=== PATIENT | female | born 1990 | race Caucasian/White ===

== ENCOUNTER 2017-01-02 01:34 | Emergency (ER) | payer OTHER ==
[2017-01-02 01:38] VITALS: BP 130/75; PULSE 88; RESP 16; TEMP 97.5; O2SAT 100
== END 2017-01-02 02:03 | disposition home or self-care (01) | DRG 951 ==
LOC: ED 01:34
DX: Z77.21 Contact with and (suspected) exposure to potentially hazardous body fluids (principal); W46.0XXA Contact with hypodermic needle, initial encounter
CPT/HCPCS: 99282